=== PATIENT | male | born 1995 | race Asian ===

== ENCOUNTER 2021-10-24 20:59 | Emergency (ER) | payer BC ==
[~2021-10-24] VITALS: Ht 180.3 cm; Wt 79.4 kg
[2021-10-24 21:20] VITALS: BP 145/98
--- NOTE | 2021-10-24 21:20 | NUR ---
BIBS C/O PAPITATIONS/ANXIETY S/P USING COCAINE. DENIES SOB; TOLERATING R/A WELL. PT A/OX3.
== END 2021-10-24 22:25 | disposition home or self-care (01) ==
LOC: ER 21:04
DX: F14.10 Cocaine abuse, uncomplicated (principal); R00.2 Palpitations